=== PATIENT | female | born 1965 | race Caucasian/White ===

== ENCOUNTER 2022-07-13 10:28 | Emergency (ER) | payer BC, SELFPAY ==
[2022-07-13] MEDS ORDERED: Ipratropium/Albuterol 3 ML NEB ONE (10:31)
[2022-07-13 11:04] LABS: #Basophils 0.1 thou/uL (0.0-0.2); #Eosinphils 0.1 thou/uL (0.0-0.7); #Monocytes 0.4 thou/uL (0.11-0.59); #Neutrophils 5.1 thou/uL (1.40-6.50); %Basophils 1.2 % (0.0-1.0); %Eosinophils 1.2 % (0.0-10.0); %Lymphocytes 15.3 % (21.0-51.0); %Monocytes 5.9 % (0.0-10.0); %Neutrophils 76.5 % (42.0-75.0); Hemoglobin 11.4 g/dL (12.0-16.0); Mean Corpuscular HGB CONC 33.7 g/dL (32.0-36.0); Mean Corpuscular Hemoglobin 30.8 pg (27.0-31.0); Mean Corpuscular Volume 91.5 fl (78.0-98.0); Mean Platelet Volume 6.7 fL (7.4-10.4); Platelet Count 354 10x3/uL (130-400); RBC Distribution Width 12.6 % (11.5-14.5); White Blood Cell (WBC) Count 6.7 10x3/uL (4.8-10.8)
[2022-07-13 11:19] LABS: ALT (SGPT) 30 U/L (8-55); AST (SGOT) 31 U/L (5-34); Albumin 3.3 g/dL (3.5-5.0); Alkaline Phosphatase 104 U/L (40-110); Anion Gap 13 mmol/L (10-20); BUN (Urea Nitrogen) 10 mg/dL (9.8-20.1); Bilirubin, Total 0.6 mg/dL (0.2-1.2); Calc. Creatinine Clearance 0 mL/min (70-130); Calcium 8.5 mg/dL (7.8-10.44); Carbon Dioxide 18 mmol/L (22-29); Chloride 111 mmol/L (98-107); Estimated GFR 85; Globulin 3.4 g/dL (2.4-3.5); Glucose 131 mg/dL (70-105); Potassium 4.4 mmol/L (3.5-5.1); Protein, Total 6.7 g/dL (6.0-8.3); Sodium 138 mmol/L (136-145)
[2022-07-13] MEDS ORDERED: Acetaminophen 500 MG TAB ONE (11:37)
[2022-07-13 11:42] LABS: CKMB 2.1 ng/mL (0-6.6)
[2022-07-13] MEDS ORDERED: Aspirin Chewable 81 MG TAB ONE (12:24)
[2022-07-13] MEDS ORDERED: Furosemide 40 MG/4 ML VIAL ONE ×2 (12:24→21:56)
[2022-07-13] MEDS ORDERED: Nitroglycerin 2% Ointment 1 INCH/1 GM Packet ONE (12:55)
[2022-07-13 21:29] LABS: Troponin I 0.054 ng/mL (< 0.028)
== END 2022-07-13 22:30 | disposition short-term general hospital (02) ==
LOC: BURERS 10:28
DX: I11.0 Hypertensive heart disease with heart failure (principal); E03.9 Hypothyroidism, unspecified; E78.00 Pure hypercholesterolemia, unspecified; F17.210 Nicotine dependence, cigarettes, uncomplicated
CPT/HCPCS: 36415; 71045; 80053; 82553; 83880; 84484; 85025; 93005; 96374; 96376; J1940; J7620